=== PATIENT | male | born 1945 | race Caucasian/White ===

== ENCOUNTER 2017-06-29 20:01 | Emergency (ER) | payer OTHER, MEDICARE ==
[~2017-06-29] VITALS: Ht 172.7 cm; Wt 75.0 kg
[~2017-06-29 20:01] MED LIST: ALPRAZOLAM; CEVIMELINE HCL 30 MG; ENBREL50 MG/ML SC; EVOXAC30 MG PO; LEVAQUIN 5500 MG/TA1 PO; LEVAQUIN 750MG750 M1 PO; NORCO 325 MG-51 TAB PO; PHENERGAN W/CO120 ML PO; POLYMYXIN B/TRIMETH OU; PREDFORTE5ML OU; PRILOSEC 20MG20 MG PO; TYLENOL 325MG325 MG PO; XANAX 0.5MG0.5 MG PO
[2017-06-29 20:10] VITALS: TEMP 97.6
[2017-06-29 20:39] LABS: BASO % 0.4 % (0.0-2.0); EOS # 0.3 (0.0-0.7); EOS % 3.5 % (0-4.0); GRAN # 5.7 (1.4-6.5); HEMATOCRIT 36.1 % (42.0-52.0); LYMPH # 2.3 (1.2-3.4); LYMPH % 24.7 % (20.0-51.0); MEAN CELL VOLUME 87 fl (80.0-100.0); MEAN CORPUSCULAR HEMOGLOBIN 31 pg (27.0-31.0); MEAN CORPUSCULAR HGB CONC 36 g/dl (33.0-37.0); MEAN PLATELET VOLUME 8.9 fl (7.4-10.4); MONO # 1.1 (0.1-0.6); MONO % 11.2 % (1.7-9.3); PLATELET COUNT 237 K/mm3 (130-400); RED BLOOD COUNT 4.15 M/mm3 (4.20-5.60); REDCELL DISTRIBUTION WIDTH-CV 13.2 % (11.5-14.5)
[2017-06-29 20:43] LABS: INR 1.1 (0.8-3.0); PROTHROMBIN TIME 12.4 SECONDS (9.7-12.8)
[2017-06-29 20:49] LABS: BLOOD UREA NITROGEN 8 mg/dL (9-20); CARBON DIOXIDE 22 mmol/L (22-30); CHLORIDE 105 mmol/L (98-107); CREATININE, serum 1.11 mg/dL (0.66-1.25); GLUCOSE 94 mg/dL (74-106); POTASSIUM 3.5 mmol/L (3.4-5.0)
[2017-06-29] MEDS ORDERED: VENTOLIN0.09 MG IH (20:51)
[2017-06-29] MEDS ORDERED: ZITHROMAX 250M250 MG PO (20:52)
[2017-06-29] MEDS ORDERED: FLONASE NASAL S16 GM NS (20:52)
[2017-06-29] MEDS ORDERED: BREO IH (20:53)
[2017-06-29 21:00] LABS: ALANINE AMINOTRANSFERASE 27 U/L (21-72); ALBUMIN 3.9 gm/dL (3.5-5.0); ALKALINE PHOSPHATASE 77 U/L (50-136); AST,SGOT 33 U/L (15-37); CALCIUM 8.5 mg/dL (8.4-10.2); SODIUM 139 mmol/L (137-145); TOTAL PROTEIN 8.1 gm/dL (6.4-8.2)
[2017-06-29 21:03] LABS: ANION GAP 56 mmol/L (7-16); TROPONIN-I < 0.012 ng/mL (0.000-0.034)
[2017-06-29] MEDS ORDERED: PREDNISONE20 MG PO (21:24)
[2017-06-29] MEDS ORDERED: ZITHROMAX500 M2 PO (21:24)
[2017-06-29 22:21] VITALS: BP 150/88; PULSE 87
== END 2017-06-29 22:20 | disposition home or self-care (01) ==
LOC: COL.ER 20:01
PROVIDERS: Emergency Medicine
DX: J20.9 Acute bronchitis, unspecified (principal); M06.9 Rheumatoid arthritis, unspecified; Z86.19 Personal history of other infectious and parasitic diseases; Z87.09 Personal history of other diseases of the respiratory system; Z90.49 Acquired absence of other specified parts of digestive tract; Z90.89 Acquired absence of other organs; Z79.51 Long term (current) use of inhaled steroids
CPT/HCPCS: J0696; J2930

== ENCOUNTER 2019-01-24 10:07 | Observation (INO) | payer OTHER ==
[~2019-01-24] VITALS: Ht 175.3 cm; Wt 71.3 kg
[~2019-01-24 10:07] MED LIST changes: +BREO IH; +FLONASE NASAL S16 GM NS; +PREDNISONE20 MG PO; +VENTOLIN0.09 MG IH; +ZITHROMAX 250M250 MG PO; +ZITHROMAX500 M2 PO
[2019-01-24 10:46] LABS: BASO # 0.1 (0.0-0.2); BASO % 0.9 % (0.0-2.0); EOS # 0.2 (0.0-0.7); EOS % 2.6 % (0-4.0); GRAN # 5.6 (1.4-6.5); HEMATOCRIT 44.7 % (42.0-52.0); HEMOGLOBIN 15.6 g/dl (13.5-18.0); LYMPH # 1.5 (1.2-3.4); LYMPH % 19.2 % (20.0-51.0); MEAN CELL VOLUME 90 fl (80.0-100.0); MEAN CORPUSCULAR HEMOGLOBIN 32 pg (27.0-31.0); MEAN CORPUSCULAR HGB CONC 35 g/dl (33.0-37.0); MEAN PLATELET VOLUME 9.1 fl (7.4-10.4); MONO # 0.6 (0.1-0.6); MONO % 7.1 % (1.7-9.3); PLATELET COUNT 213 K/mm3 (130-400); RED BLOOD COUNT 4.96 M/mm3 (4.20-5.60); REDCELL DISTRIBUTION WIDTH-CV 13.2 % (11.5-14.5)
[2019-01-24 10:58] LABS: ALBUMIN 4.5 gm/dL (3.5-5.0); BILIRUBIN,TOTAL 1.7 mg/dL (0.0-1.0); CALCIUM 9.5 mg/dL (8.4-10.2); CREATININE, serum 1.18 (0.66-1.25); POTASSIUM 3.9 mmol/L (3.4-5.0); TOTAL PROTEIN 8.5 gm/dL (6.4-8.2)
[2019-01-24 12:56] VITALS: BP 119/117; BP 191/117; PULSE 82; TEMP 97.2
[2019-01-24 15:07] VITALS: BP 139/80; PULSE 80; TEMP 97.5
[2019-01-24 19:19] VITALS: BP 159/91; PULSE 80
--- NOTE | 2019-01-24 19:26 | NUR ---
Patient had arrived as a direct admit from Dr. Cannon's office with reported having some numbness and decreased motor skills to the left upper arm. Left leg also having some parasthesias but has no trouble with gait. Was observed to have steady gait. He states that he has had trouble manipulating small items, using silverware, buttoning shirt and tying shoes. He also stated when he would drive he would lose sense of direction and would have difficulty knowing if he should stop or go on red or green stop lights. He said he would forget little things like shut off the water when leaving a room. Family and patient both agree that he has not had any slurred speech or facial drooping. Patient did have echo and carotid studies done and was notified that patient had a high grade carotid stenosis 80-90% on the right. Dr. De La Cruz was aware of results and as well as elevated, did receive order for bp med and anti anxiety medication. Blood pressure did improve after this. MRI/MRA ordered, patient returned, received call from Dr. Carreon with results that patient was experiencing multiple acute infarcts. Did place call to Dr. De La Cruz. He did request to speak with Dr. Carreon. Did provide him with Dr. Carreon's number. Dr. De La Cruz is currently here to assess and is speaking with [facility] transfer line to transport to higher level of care.
--- NOTE | 2019-01-24 20:40 | NUR ---
Assessment complete. Lung bases bilaterally diminished otherwise clear. Heart sounds normal. Bowels active x4. Pulses strong throughout. No edema. Left arm drift present, silk finisher unequal, left leg weakness, however steady gait. Smile unequal. Daughter in law at bedside. Patient alert and orientated x4. Denies other needs at this time. Dr. De La Cruz gave verbal order for 300mg plavix and NS at 60 ml/hr. Provided to patient.
--- NOTE | 2019-01-24 21:12 | NUR ---
Patient left with EMS for [facility] at this time.
--- NOTE | 2019-01-24 21:15 | NUR ---
Report called to MABEL Taylor at [facility] at this time.
== END 2019-01-24 21:25 | disposition critical access hospital (66) ==
LOC: MEDICAL 10:07
PROVIDERS: ADMIT Family Medicine
DX: I63.9 Cerebral infarction, unspecified (principal); I34.0 Nonrheumatic mitral (valve) insufficiency; M06.9 Rheumatoid arthritis, unspecified; I10 Essential (primary) hypertension; F41.9 Anxiety disorder, unspecified; M35.00 Sjogren syndrome, unspecified
CPT/HCPCS: A9585; G0378; J7030

== ENCOUNTER 2019-06-30 23:07 | Emergency (ER) | payer OTHER ==
[~2019-06-30] VITALS: Ht 172.7 cm; Wt 72.7 kg
[2019-06-30] MEDS ORDERED: PLAVIX 75MG TAB75 MG (23:24)
[2019-06-30] MEDS ORDERED: FLOMAX 0.40.4 MG/CAP PO (23:24)
[2019-07-01 01:30] VITALS: BP 131/74; PULSE 86; TEMP 97.3
== END 2019-07-01 01:30 | disposition home or self-care (01) ==
LOC: COL.ER 23:07
DX: R04.0 Epistaxis (principal); Z79.51 Long term (current) use of inhaled steroids

== ENCOUNTER → 2019-08-23 | Outpatient (CLI) | payer OTHER ==
[~2019-08-23] MED LIST changes: +FLOMAX 0.40.4 MG/CAP PO; +PLAVIX 75MG TAB75 MG
== END ==
LOC: COL.RAD 08:21
DX: J84.10 Pulmonary fibrosis, unspecified (principal); K44.9 Diaphragmatic hernia without obstruction or gangrene; J47.9 Bronchiectasis, uncomplicated

== ENCOUNTER → 2019-10-02 | Outpatient (CLI) | payer OTHER | LOC: COL.RAD 13:56 | DX: J84.10 Pulmonary fibrosis, unspecified (principal); J47.9 Bronchiectasis, uncomplicated ==